=== PATIENT | female | born 1950 | race Caucasian/White ===

== ENCOUNTER 2017-01-31 09:48 | Emergency (ER) | payer OTHER ==
[~2017-01-31] VITALS: Ht 170.2 cm; Wt 55.3 kg
[2017-01-31 10:00] VITALS: BP 123/81
--- NOTE | 2017-01-31 10:34 | RAD ---
Examination: 3 views of the left foot History: History of left foot pain, heavy object fell on the left foot Comparison: None available Findings: The alignment of the tarsal bones, tarsometatarsal joints grossly appears unremarkable. Mild degenerative changes identified in the first metatarsophalangeal joint. There is questionable slight lateral subluxation appearance of the distal phalanx of the second digit in relation to the middle phalanx. Correlate clinically. Mild soft tissue swelling identified in the dorsum of the forefoot dorsal to the metatarsals. Impression: 1. Questionable slight lateral subluxation appearance of the distal phalanx of the second digit in relation to the middle phalanx. Correlate clinically. Mild soft tissue swelling identified in the dorsum of the forefoot dorsal to the metatarsals.
--- NOTE | 2017-01-31 11:00 | PHYS DOC ---
Past History Past Medical History: Cancer, GERD, Other Past Surgical History: Cancer Surgery Alcohol Use: Occasionally Drug Use: None Adult General Chief Complaint Chief Complaint: FOOT INJURY PAIN HPI HPI Patient is a 66 year old female who presents with foot injury. The patient states last evening a wrought iron planter fell onto her foot when she stepped out of the hot tub. She has dull pain to the top of her foot today, able to bear weight with pain. Denies other injuries. Denies numbness/weakness. Denies previous foot surgery. Did not take any meds for this problem. Review of Systems Review of Systems Constitutional: Denies fever HENT: Denies nasal congestion Respiratory: Denies cough Cardiovascular: Denies chest pain GI: Denies abdominal pain Musculoskeletal: Reports foot pain Integument: Denies rash Neurologic: Denies headache Allergies Allergies Allergies Coded Allergies Type Severity Reaction Last Updated Verified No Known Drug Allergies 01/31/17 No Physical Exam Physical Exam Constitutional: Well developed, well nourished, no acute distress, non-toxic appearance. HENT: Normocephalic, atraumatic, bilateral external ears normal, oropharynx moist, nose normal. Eyes: conjunctiva normal, no discharge. Cardiovascular: no edema. Lungs & Thorax: no respiratory distress. Abdomen: nondistended. Skin: Warm, dry, no erythema, no rash. Extremities: right foot mild swelling & slight ecchymosis to dorsum of the foot over 1-4 metatarsals distally, tender in this distribution. otherwise no swelling or deformity or tenderness to knee, proximal tib/fib, ankle, normal ROM at ankle, able to move toes, dp/pt 2+, sensation intact to foot, cap refill < 2 sec. Neurologic: Alert and oriented X 3 Current Patient Data Vital Signs Vital Signs Date Time Temp Pulse Resp B/P (MAP) Pulse Ox O2 Delivery O2 Flow Rate FiO2 01/31/17 10:00 98.3 110 18 98 Room Air EKG EKG [] Radiology/Procedures Radiology/Procedures PROCEDURE: FOOT LEFT 3V Examination: 3 views of the left foot History: History of left foot pain, heavy object fell on the left foot Comparison: None available Findings: The alignment of the tarsal bones, tarsometatarsal joints grossly appears unremarkable. Mild degenerative changes identified in the first metatarsophalangeal joint. There is questionable slight lateral subluxation appearance of the distal phalanx of the second digit in relation to the middle phalanx. Correlate clinically. Mild soft tissue swelling identified in the dorsum of the forefoot dorsal to the metatarsals. Impression: 1. Questionable slight lateral subluxation appearance of the distal phalanx of the second digit in relation to the middle phalanx. Correlate clinically. Mild soft tissue swelling identified in the dorsum of the forefoot dorsal to the metatarsals. DICTATED AND SIGNED BY: PHILIP JOHANSEN MD DATE: 01/31/17 1029 [] Course & Med Decision Making Course & Med Decision Making Pertinent Labs and Imaging studies reviewed. (See chart for details) The patient presents with foot pain. X-ray shows possible subluxation. She has no pain in the area of the abnormality, & states she had an old injury to her toe as a child. Provided post op shoe for comfort, recommend rest, ice, elevation, tylenol/ibuprofen, follow up with PCP for additional concerns. Discharged home in stable condition. [] Dragon Disclaimer Dragon Disclaimer This chart was dictated in whole or in part using Voice Recognition software in a busy, high-work load, and often noisy Emergency Department environment. It may contain unintended and wholly unrecognized errors or omissions. Departure Departure: Impression: Primary Impression: Contusion of foot Disposition: 01 HOME, SELF-CARE Condition: STABLE Patient Instructions: Foot Contusion, [id number] Additional Instructions: You were seen in the emergency department today for foot injury. The x-ray did not show a fracture. Please rest, apply ice, elevate, use the hard soled shoe for comfort. Take Tylenol or ibuprofen for pain. Follow-up as needed with primary care physician if not improving in one to 2 weeks. TYSHAWN YA MD Jan 31, 2017 11:00
== END 2017-01-31 11:12 | disposition home or self-care (01) ==
LOC: ER 09:48
DX: S90.32XA Contusion of left foot, initial encounter (principal); K21.9 Gastro-esophageal reflux disease without esophagitis; W20.8XXA Other cause of strike by thrown, projected or falling object, initial encounter; Y93.89 Activity, other specified; Y99.8 Other external cause status; Y92.89 Other specified places as the place of occurrence of the external cause
CPT/HCPCS: 73630; 99284